=== PATIENT | male | born 2005 | race Caucasian/White ===

== ENCOUNTER 2023-04-26 00:01 | Emergency (ER) | payer OTHER | END 2023-04-26 01:54 | disposition home or self-care (01) | LOC: CSHERS 00:01 | DX: S61.411A Laceration without foreign body of right hand, initial encounter (principal); F17.210 Nicotine dependence, cigarettes, uncomplicated; W25.XXXA Contact with sharp glass, initial encounter | CPT/HCPCS: 12002 ==